=== PATIENT | female | born 1975 | race Caucasian/White ===

== ENCOUNTER 2018-09-06 07:44 | Emergency (ER) | payer MEDICAID ==
[~2018-09-06] VITALS: Ht 157.5 cm; Wt 111.0 kg
[~2018-09-06 07:44] MED LIST: CEPH-443 PO; HYDR-4011 PO; IBUP800T48 PO; SULF1TAB31 PO
[2018-09-06 07:47] VITALS: BP 134/87; PULSE 89; RESP 20; Ht 157.5 cm; Wt 111.0 kg
--- NOTE | 2018-09-06 08:25 | ERD ---
ER Documentation Chief Complaint Chief Complaint Needs wound check on right neck area, was here 2 days ago due to abscess HPI Patient is a 42 years old female presented to the clinic for 2 days follow-up for wound checkup status post I&D for right posterior neck abscess. Patient reports pain has improved since initial visit on 09/04/2018 and is currently on Bactrim and Keflex. ROS All systems reviewed and are negative except as per history of present illness. Medications Home Meds Active Scripts Ibuprofen* (Motrin*) 800 Mg Tab, 800 MG PO Q6H PRN for PAIN AND OR ELEVATED TEMP, #30 TAB Prov:AARON GONZALEZ PA-C 09/06/18 Hydrocodone/Acetaminophen ([place] 5-325 Tablet) 1 Each Tablet, 1 TAB PO Q6H PRN for PAIN, #15 TAB Prov:BENITA RIOS PA-C 09/04/18 Cephalexin* (Keflex*) 500 Mg Capsule, 500 MG PO QID for 7 Days, CAP Prov:BENITA RIOS PA-C 09/04/18 Sulfamethoxazole/Trimethoprim* (Bactrim Ds* Tablet) 1 Each Tablet, 1 TAB PO BID, #14 TAB Prov:BENITA RIOS PA-C 09/04/18 Allergies Allergies: Coded Allergies: No Known Allergy (Unverified , 08/08/12) PMhx/Soc Medical and Surgical Hx: pt denies Medical Hx, pt denies Surgical Hx History of Surgery: No Anesthesia Reaction: No Hx Neurological Disorder: No Hx Respiratory Disorders: No Hx Cardiac Disorders: No Hx Psychiatric Problems: No Hx Miscellaneous Medical Probl: No Hx Alcohol Use: No Hx Substance Use: No Hx Tobacco Use: No Smoking Status: Never smoker FmHx Family History: No diabetes, No coronary disease, No other Physical Exam Vitals Vital Signs Date Temp Pulse Resp B/P (MAP) Pulse Ox O2 O2 Flow FiO2 Time Delivery Rate 09/06/18 97.7 89 20 134/87 97 07:47 (103) Physical Exam Const: No acute distress Head: Atraumatic Resp: Clear to auscultation bilaterally Cardio: Regular rate and rhythm, no murmurs Abd: Soft, non tender, non distended. Normal bowel sounds Psych: Normal Mood and Affect Wound Exam: Incision on right posterior neck shows no signs of erythema, induration, pus drainage. There is mild bleeding noted. Procedures/MDM Patient was seen and evaluated for 2 days wound checkup post I&D of right posterior neck. Patient admits to taking [place] 3 AM. Under sterile technique, 1% lidocaine applied followed by removal of packing strip. Provider then irrigated the abscess pocket with normal saline followed by iodine packing strip and dressing application. Patient tolerated the procedure well. Patient is stable ready for discharge. Patient was advised to follow-up in 4 days for wound care/packing strip application. Ibuprofen 800 mg will be added to patient's medication regimen. Patient stable ready for discharge. Departure Diagnosis: Primary Impression: Encounter for wound re-check Condition: Stable Patient Instructions: Wound Packing Referrals: [facility] Additional Instructions: Patient advised to return to the ED immediately for new or worsening symptoms. Patient advised to follow up with primary care provider in the next 24-48 hours. Patient verbalized understanding and agrees with treatment plan and course of action. If patient has no primary care they may follow up with [facility] + [facility] [address] [place] [id number] or [facility] [id number] [place] [id number] or [facility] [address] [place] [address] AARON GONZALEZ PA-C Sep 06, 2018 08:25
== END 2018-09-06 08:42 | disposition home or self-care (01) ==
LOC: FTE 07:44
DX: Z48.01 Encounter for change or removal of surgical wound dressing (principal)
CPT/HCPCS: 99282

== ENCOUNTER 2018-09-10 08:28 | Emergency (ER) | payer MEDICAID ==
[~2018-09-10] VITALS: Ht 152.4 cm; Wt 110.0 kg
[2018-09-10 08:33] VITALS: BP 119/72; PULSE 86; RESP 17; Ht 152.4 cm; Wt 110.0 kg
--- NOTE | 2018-09-10 09:31 | ERD ---
ER Documentation Chief Complaint Chief Complaint WOUND CHECK TO RT NECK HPI 42-year-old female presenting to ER for wound check of the right neck. Patient had I&D performed last week and is taking antibiotics without difficulty. She denies any fevers and states it is improving. Has no pain with neck movement. Denies other medical problems. NKDA. Surgical history denies. Social history denies ROS All systems reviewed and are negative except as per history of present illness. Medications Home Meds Active Scripts Ibuprofen* (Motrin*) 800 Mg Tab, 800 MG PO Q6H PRN for PAIN AND OR ELEVATED TEMP, #30 TAB Prov:AARON GONZALEZ PA-C 09/06/18 Hydrocodone/Acetaminophen ([place] 5-325 Tablet) 1 Each Tablet, 1 TAB PO Q6H PRN for PAIN, #15 TAB Prov:BENITA RIOS PA-C 09/04/18 Cephalexin* (Keflex*) 500 Mg Capsule, 500 MG PO QID for 7 Days, CAP Prov:BENITA RIOS PA-C 09/04/18 Sulfamethoxazole/Trimethoprim* (Bactrim Ds* Tablet) 1 Each Tablet, 1 TAB PO BID, #14 TAB Prov:BENITA RIOS PA-C 09/04/18 Allergies Allergies: Coded Allergies: No Known Allergy (Unverified , 08/08/12) PMhx/Soc History of Surgery: No Anesthesia Reaction: No Hx Neurological Disorder: No Hx Respiratory Disorders: No Hx Cardiac Disorders: No Hx Psychiatric Problems: No Hx Miscellaneous Medical Probl: No Hx Alcohol Use: No Hx Substance Use: No Hx Tobacco Use: No Smoking Status: Never smoker FmHx Family History: No diabetes, No coronary disease, No other Physical Exam Vitals Vital Signs Date Temp Pulse Resp B/P (MAP) Pulse Ox O2 O2 Flow FiO2 Time Delivery Rate 09/10/18 97.9 86 17 119/72 99 08:33 (88) Physical Exam GENERAL: The patient is well-appearing, well-nourished, in no acute distress HEENT: Atraumatic. Conjunctivae are pink. Pupils equal, round, and reactive to light. There is no scleral icterus. Tympanic membranes clear bilaterally. Oropharynx clear. . NECK: C-spine is soft and supple. There is no meningismus. There is no cervical lymphadenopathy. CHEST: Clear to auscultation bilaterally. There are no rales, wheezes or rhonchi. HEART: Regular rate and rhythm. No murmurs, clicks, rubs or gallops. SKIN: Previous I&D site noted to the right lateral neck with iodoform intact. Mild surrounding erythema with mild clear drainage. Procedures/MDM ER course: Iodoform packing removed. Site was continued to be drained however i s no purulence only clear serous fluid. Patient had mild blood. MDM: 42-year-old female presenting for wound check. I have low suspicion for worsening abscess or deep tracking abscess. patient is discharged with strict ER precautions and told to follow-up with primary care within 1 to 2 days for close evaluation. Patient is told to clean with soap and water. All questions ans wered at discharge Departure Diagnosis: Primary Impression: Encounter for wound re-check Condition: Stable Patient Instructions: Wound Care Referrals: [facility] YOU HAVE RECEIVED A MEDICAL SCREENING EXAM AND THE RESULTS INDICATE THAT YOU DO NOT HAVE A CONDITION THAT REQUIRES URGENT TREATMENT IN THE EMERGENCY DEPARTMENT. FURTHER EVALUATION AND TREATMENT OF YOUR CONDITION CAN WAIT UNTIL YOU ARE SEEN IN YOUR DOCTORS OFFICE WITHIN THE NEXT 1-2 DAYS. IT IS YOUR RESPONSIBILITY TO MAKE AN APPOINTMENT FOR [facility]. IF YOU HAVE A PRIMARY DOCTOR --you should call your primary doctor and schedule an appointment IF YOU DO NOT HAVE A PRIMARY DOCTOR YOU CAN CALL OUR PHYSICIAN REFERRAL HOTLINE AT IF YOU CAN NOT AFFORD TO SEE A PHYSICIAN YOU CAN CHOSE FROM THE FOLLOWING [facility] [id number] [facility]. [facility] [address] [facility] [address] [facility] [address] [facility]. [facility] [address] [facility]. [facility]. [address] Additional Instructions: FOLLOW UP WITH YOUR PRIMARY CARE PHYSICIAN TOMORROW.Return to this facility if you are not improving as expected. KRISTEN KENNEDY PA-C Sep 10, 2018 09:31
== END 2018-09-10 09:55 | disposition home or self-care (01) ==
LOC: FTE 08:28
DX: Z48.01 Encounter for change or removal of surgical wound dressing (principal)
CPT/HCPCS: 99281